=== PATIENT | male | born 1955 | race Caucasian/White ===

== ENCOUNTER 2016-12-05 13:40 | Observation (INO) | payer OTHER ==
[~2016-12-05] VITALS: Ht 167.6 cm; Wt 61.0 kg
[2016-12-05] MEDS ORDERED: SOD CHLORIDE 0.9% 1,000 ML IV STA (21:38)
--- NOTE | 2016-12-05 21:43 | ERA ---
ER Documentation Chief Complaint Date/Time DATE: 12/05/16 TIME: 21:40 Chief Complaint weight loss polyphagia and polydypsia for about a month. bs 449 HPI Patient is a 61-year-old male who was family reports that he is extremely shy and does not complain very frequently so they are unsure when his symptoms actually started. Reportedly he has had weight loss with polydipsia and polyuria possibly for the last month. One of his family members is a diabetic so she checked his blood sugar was in the 400s today and he does not have a history of diabetes. He does not report any pain anywhere although he does state that he feels dizzy and lightheaded when he stands up. He has not passed out nor has he had any chest pain, shortness of breath, palpitations, headache, fever, congestion, sore throat, otalgia, vomiting, diarrhea, dysuria, hematuria , flank, back pain, abnormal bleeding, bruises, or rashes. Nothing seems to make this better or worse. The remainder of the systems are negative. ROS All systems reviewed and are negative except as per history of present illness. Medications Home Meds No Active Prescriptions or Reported Meds Allergies Allergies: Coded Allergies: No Known Drug Allergies (Verified Allergy, Unknown, 12/05/16) PMhx/Soc Medical and Surgical Hx: pt denies Medical Hx, pt denies Surgical Hx Hx Alcohol Use: Yes (occassional) Hx Substance Use: No Hx Tobacco Use: No Smoking Status: Never smoker FmHx Family History: diabetes Physical Exam Vitals Vital Signs Date Time Temp Pulse Resp B/P Pulse Ox O2 Delivery O2 Flow Rate FiO2 12/05/16 21:57 Nasal Cannula 12/05/16 21:29 70 16 120/77 100 Room Air 12/05/16 13:46 98.8 92 21 120/74 98 Physical Exam Const: [] Well-developed well-nourished male lying on the bed, Head: Atraumatic normocephalic Eyes: Normal Conjunctiva ENT: Normal External Ears, Nose and Mouth. Mucosa appears dry Neck: Full range of motion..~ No meningismus. Resp: Clear to auscultation bilaterally Cardio: Regular rate and rhythm, no murmurs, rubs, gallops Abd: Soft, non tender, non distended. Normal bowel sounds no masses, rebound or guarding Skin: No petechiae or rashes Back: No midline or flank tenderness Ext: No cyanosis, or edema Neur: Awake and alert oriented 3 with a GCS 15, nonfocal, moves all extremities equally Psych: Normal Mood and Affect Result Diagram: 12/05/16215412/05/162154 Results 24 hrs Laboratory Tests Test 12/05/16 13:51 12/05/16 21:45 12/05/16 21:55 Bedside Glucose 449mg/dL 330mg/dL Activated Partial Thromboplast Time 25.4Sec Alanine Aminotransferase (ALT/SGPT) 29IU/L Albumin 3.9g/dl Albumin/Globulin Ratio 1.30 Alkaline Phosphatase 181IU/L Anion Gap 15 Aspartate Amino Transf (AST/SGOT) 41IU/L Basophils # 0.010^3/ul Basophils % 0.3% Blood Morphology Comment Blood Urea Nitrogen 19mg/dl Calcium Level 9.3mg/dl Carbon Dioxide Level 25mmol/L Chloride Level 101mmol/L Creatinine 0.62mg/dl Direct Bilirubin 0.00mg/dl Eosinophils # 0.110^3/ul Eosinophils % 1.4% Globulin 3.00g/dl Glucose Level 348mg/dl Hematocrit 39.5% Hemoglobin 13.5g/dl INR International Normalized Ratio 0.92 Indirect Bilirubin 0.3mg/dl Lymphocytes # 2.210^3/ul Lymphocytes % 29.1% Mean Corpuscular Hemoglobin 31.0pg Mean Corpuscular Hemoglobin Concent 34.2g/dl Mean Corpuscular Volume 90.7fl Mean Platelet Volume 10.9fl Monocytes # 0.510^3/ul Monocytes % 6.4% Neutrophils # 4.710^3/ul Neutrophils % 62.8% Nucleated Red Blood Cells # 0.010^3/ul Nucleated Red Blood Cells % 0.0/100WBC Platelet Count 63997^3/UL Potassium Level 4.1mmol/L Prothrombin Time 12.4Sec Prothrombin Time Ratio 1.0 Red Blood Count 4.3510^6/ul Red Cell Distribution Width 12.8% Sodium Level 137mmol/L Total Bilirubin 0.3mg/dl Total Protein 6.9g/dl Troponin I Pending Urine Bilirubin NEGATIVE Urine Clarity CLEAR Urine Color LT. YELLOW Urine Glucose >=1000% Urine Hemoglobin NEGATIVE Urine Ketones 40 Urine Leukocyte Esterase NEGATIVE Urine Nitrite NEGATIVE Urine Specific [place] 1.010 Urine Total Protein NEGATIVE Urine Urobilinogen 0.2 E.U./dL Urine pH 6.0 White Blood Count 7.510^3/ul Current Medications Medications (Trade) Dose Ordered Sig/Heather Route PRN Reason Start Time Stop Time Status Last Admin Dose Admin Sodium Chloride (NS) 1,000 ml @ 1,000 mls/hr Q1H STAT IV 12/05/16 21:38 12/05/16 22:37 12/05/16 22:03 Insulin Human Regular (Humulin R) 6 unit ONCE ONCE IV 12/05/16 22:00 12/05/16 22:01 DC 12/05/16 22:05 Procedures/MDM Medical decision making: Patient presents with what appears to be new onset diabetes. More than likely is volume depleted. I will go ahead and order IV fluids and check his electrolytes. EKG reveals normal sinus rhythm at 65 bpm with no evidence for acute ischemia arrhythmia or abnormalities noted, no old EKG available for comparison Chest x-ray does not reveal any acute cardiopulmonary process per my read 2030: Consult Dr. Flores the hospitalist to admit for further evaluation and treatment of his new onset diabetes Departure Diagnosis: Primary Impression: Diabetes mellitus, new onset Additional Impressions: Dehydration Dizziness Condition: Good PROMISE CRANE Dec 05, 2016 21:43
[2016-12-05] MEDS ORDERED: INSULIN REGULAR, HUMAN 100 UNIT/1 ML 3ML VIAL IV ONE (22:00)
[2016-12-05 22:14] LABS: BASOPHILS % 0.3 % (0.0-2.0); EOSINOPHILS # 0.1 10^3/ul (0.0-0.5); EOSINOPHILS % 1.4 % (0.0-7.0); HEMATOCRIT 39.5 % (42.0-52.0); HEMOGLOBIN 13.5 g/dl (14.0-18.0); LYMPHOCYTES # 2.2 10^3/ul (0.8-2.9); LYMPHOCYTES % 29.1 % (15.0-51.0); MEAN CORPUSCULAR HGB CONC 34.2 g/dl (32.0-37.0); MEAN CORPUSCULAR VOLUME 90.7 fl (82.0-101.0); MEAN PLATELET VOLUME 10.9 fl (7.4-10.4); MONOCYTE # 0.5 10^3/ul (0.3-0.9); MONOCYTES % 6.4 % (0.0-11.0); NEUTROPHIL # 4.7 10^3/ul (1.6-7.5); NEUTROPHILS % 62.8 % (39.0-77.0); PLATELET COUNT 208 10^3/UL (140-440); RED BLOOD COUNT 4.35 10^6/ul (4.70-6.10); RED CELL DISTRIBUTION WIDTH 12.8 % (11.5-14.5); UNCORRECTED WBC 7.5 10^3/ul (4.8-10.8); WHITE BLOOD COUNT 7.5 10^3/ul (4.8-10.8)
[2016-12-05 22:16] LABS: ADD UMIC NO; URINE BILIRUBIN (Dip) NEGATIVE (NEGATIVE); URINE BLOOD (Dip) NEGATIVE (NEGATIVE); URINE COLOR LT. YELLOW (YELLOW); URINE GLUCOSE (Dip) >=1000 % (NEGATIVE); URINE KETONES (Dip) 40 (NEGATIVE); URINE LEUKOCYTE ESTERASE (Dip) NEGATIVE (NEGATIVE); URINE NITRITE (Dip) NEGATIVE (NEGATIVE); URINE TOTAL PROTEIN (Dip) NEGATIVE (NEGATIVE); URINE UROBILINOGEN (Dip) 0.2 E.U./dL (0.1-1.0)
[2016-12-05 22:17] LABS: CONDITION 1
--- NOTE | 2016-12-05 22:19 | RADRPT ---
PROCEDURE: XR Chest. CLINICAL INDICATION: Chest pain TECHNIQUE: Single AP portable chest COMPARISON: None. FINDINGS: The cardiomediastinal silhouette is within normal limits of size ..The lungs are clear without pleur al effusion or focal consolidation. No pneumothorax. The osseous structures and soft tissues are unr emarkable. IMPRESSION: 1. No evidence for active cardiopulmonary disease. RPTAT:AAJJ Sher Granados Physician Date Time Electronically viewed and signed by Sher Granados Physician on 12/05/2016 22:19 SHREMAN/
[2016-12-05 22:21] LABS: ALBUMIN 3.9 g/dl (3.3-4.9)
[2016-12-05 22:22] LABS: CHLORIDE 101 mmol/L (97-110); INR 0.92; POTASSIUM 4.1 mmol/L (3.5-5.1); PROTIME 12.4 Sec (12.2-14.2); SODIUM 137 mmol/L (135-144)
[2016-12-05 22:23] LABS: PARTIAL THROMBOPLASTIN TIME 25.4 Sec (25.0-35.0)
[2016-12-05 22:24] LABS: ANION GAP 15 (8-16); BILIRUBIN,INDIRECT 0.3 mg/dl (0-1.1); BILIRUBIN,TOTAL 0.3 mg/dl (0.2-1.3); CARBON DIOXIDE 25 mmol/L (21-31); CREATININE 0.62 mg/dl (0.61-1.24)
[2016-12-05 22:25] LABS: ALANINE AMINOTRANSFERASE 29 IU/L (13-69); ALKALINE PHOSPHATASE 181 IU/L (42-121); ASPARTATE AMINO TRANSFERASE 41 IU/L (15-46); BLOOD UREA NITROGEN 19 mg/dl (7-20); CALCIUM 9.3 mg/dl (8.4-10.2); GLUCOSE 348 mg/dl (70-220); TOTAL PROTEIN 6.9 g/dl (6.1-8.1)
[2016-12-05 22:53] LABS: TROPONIN-I < 0.012 ng/ml (0.00-0.12)
[2016-12-05] MEDS ORDERED: ONDANSETRON 4 MG INJ IV PRN (23:00)
[2016-12-05] MEDS ORDERED: ACETAMINOPHEN 325 MG TAB PO PRN (23:00)
[2016-12-05 23:37] VITALS: BP 97/67; PULSE 61; RESP 16
[2016-12-06 00:13] VITALS: BP_DIAS 76
[2016-12-06] MEDS ORDERED: GLUCOSE GEL 15 GRAM TUBE PO PRN ×2 (00:30)
[2016-12-06] MEDS ORDERED: GLUCAGON 1 MG INJ IM PRN (00:30)
[2016-12-06] MEDS ORDERED: DEXTROSE 50% 50 ML SYRINGE IV PRN ×2 (00:30)
[2016-12-06] MEDS ORDERED: GLUCOSE GEL 15 GRAM TUBE BUCCAL PRN (00:30)
[2016-12-06 00:34] VITALS: Ht 167.6 cm; Wt 61.0 kg
[2016-12-06] MEDS: ACCUCHECK XX SCH (01:33)
--- NOTE | 2016-12-06 03:29 | HP ---
Date/Time of Note Date/Time of Note DATE: 12/06/16 TIME: 03:17 Assessment/Plan VTE Prophylaxis VTE Prophylaxis Intervention: SCD's Lines/Catheters IV [facility]ter Type (from [facility]): Saline Lock Urinary Cath still in place: No Assessment/Plan Assessment/Plan PROBLEMS: 1. 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 Alcohol abuse? 4. Cardiac Murmur PLAN: Carb controlled diet / SSI / diabetic education / Endocrinology consult Iron profile / Glycohgb / TSH / lipid profile Start low dose Lantus with oral Metformin, Endo to modify as indicated 2D echo in the setting of Murmur and ?alcoholism Thiamine /MVI / Folic acid supplementation / PRN ativan Alcohol cessation counselling done and will continue to be reinforced throughout hospitalization. SW to provide resources for help with cessation and patient to be assisted in obtaining PCP / Also needs screening colonoscopy which should be done outpt. Supportive care PROPHYLAXIS: SCDs / pepcid HPI/ROS Admit Date/Time Admit Date/Time Dec 05, 2016 at 22:31 Hx of Present Illness PRESENTING COMPLAINT: fatigue HISTORY OF PRESENTING COMPLAINT: This is a 61-year-old male presents with family for weight loss with polydipsia and polyuria possibly for the last month .Patient has no hx of DM but was found to have blood sugars in the 400s by family. He has no hx of blood in stool or black stool, but has had dizziness and some fatigue. He has not been started on any new meds and also denies CP, SOB , diarrhea, dysuria or hematuria. He denies focal weakness, headache or passing out. Patient has not been to see a doctor in years and drinks alcohol almost daily ROS 12 point review if systems was done and pertinent findings are as noted. PMH/Family/Social Past Medical History Medical History: no pertinent history Past Surgical History Past Surgical Hx: no surgical history Family History Significant Family History: diabetes Social History Alcohol Use: heavy Smoking Status: Former smoker Drug Use: none Exam/Review of Systems Vital Signs Vitals VS - Last 72 Hours, by Label Date Time Temp Pulse Resp B/P Pulse Ox O2 Delivery O2 Flow Rate FiO2 12/06/16 00:13 98.0 72 18 118/76 96 12/05/16 23:37 61 16 97/67 99 Room Air 12/05/16 21:57 Nasal Cannula 12/05/16 21:29 70 16 120/77 100 Room Air 12/05/16 13:46 98.8 92 21 120/74 98 Vital Signs Date Time Temp Pulse Resp B/P Pulse Ox O2 Delivery O2 Flow Rate FiO2 12/06/16 00:13 98.0 72 18 118/76 96 12/05/16 23:37 Room Air Exam Constitutional: alert, oriented Psych: nl mood/affect Head: atraumatic, normocephalic Eyes: PERRL Neck: non-tender, supple, No jvd Respiratory: clear to auscultation Cardiovascular: murmurs/extra sounds, nl pulses, regular rate and rhythm Gastrointestinal: bowel sounds, non-tender, soft Musculoskeletal: nl extremities to inspection Extremities: No edema 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: nl mental status, nl speech, No focal weakness Skin: No rash or lesions Labs Result Diagram: 12/05/16215412/05/162154 Medications Medications Current Medications Diagnostic Test (Pha) (Accucheck) 1 ea 02 XX ; Start 12/06/16 at 02:00 Miscellaneous Information 1 ea NOTE XX ; Start 12/06/16 at 00:30 Glucose (Glutose) 15 gm Q15M PRN PO DECREASED GLUCOSE; Start 12/06/16 at 00:30 Glucose (Glutose) 22.5 gm Q15M PRN PO DECREASED GLUCOSE; Start 12/06/16 at 00:30 Dextrose (D50w Syringe) 25 ml Q15M PRN IV DECREASED GLUCOSE; Start 12/06/16 at 00:30 Dextrose (D50w Syringe) 50 ml Q15M PRN IV DECREASED GLUCOSE; Start 12/06/16 at 00:30 Glucagon (Glucagen) 1 mg Q15M PRN IM DECREASED GLUCOSE; Start 12/06/16 at 00:30 Glucose (Glutose) 15 gm Q15M PRN BUCCAL DECREASED GLUCOSE; Start 12/06/16 at 00: 30 Procedures Procedures Laboratory Tests Test 12/05/16 13:51 12/05/16 21:45 12/05/16 21:55 12/06/16 00:12 Bedside Glucose 449mg/dL 330mg/dL 140mg/dL Activated Partial Thromboplast Time 25.4Sec Alanine Aminotransferase (ALT/SGPT) 29IU/L Albumin 3.9g/dl Albumin/Globulin Ratio 1.30 Alkaline Phosphatase 181IU/L Anion Gap 15 Aspartate Amino Transf (AST/SGOT) 41IU/L Basophils # 0.010^3/ul Basophils % 0.3% Blood Morphology Comment Blood Urea Nitrogen 19mg/dl Calcium Level 9.3mg/dl Carbon Dioxide Level 25mmol/L Chloride Level 101mmol/L Creatinine 0.62mg/dl Direct Bilirubin 0.00mg/dl Eosinophils # 0.110^3/ul Eosinophils % 1.4% Globulin 3.00g/dl Glucose Level 348mg/dl Hematocrit 39.5% Hemoglobin 13.5g/dl INR International Normalized Ratio 0.92 Indirect Bilirubin 0.3mg/dl Lymphocytes # 2.210^3/ul Lymphocytes % 29.1% Mean Corpuscular Hemoglobin 31.0pg Mean Corpuscular Hemoglobin Concent 34.2g/dl Mean Corpuscular Volume 90.7fl Mean Platelet Volume 10.9fl Monocytes # 0.510^3/ul Monocytes % 6.4% Neutrophils # 4.710^3/ul Neutrophils % 62.8% Nucleated Red Blood Cells # 0.010^3/ul Nucleated Red Blood Cells % 0.0/100WBC Platelet Count 68621^3/UL Potassium Level 4.1mmol/L Prothrombin Time 12.4Sec Prothrombin Time Ratio 1.0 Red Blood Count 4.3510^6/ul Red Cell Distribution Width 12.8% Sodium Level 137mmol/L Total Bilirubin 0.3mg/dl Total Protein 6.9g/dl Troponin I < 0.012ng/ml Urine Bilirubin NEGATIVE Urine Clarity CLEAR Urine Color LT. YELLOW Urine Glucose >=1000% Urine Hemoglobin NEGATIVE Urine Ketones 40 Urine Leukocyte Esterase NEGATIVE Urine Nitrite NEGATIVE Urine Specific [place] 1.010 Urine Total Protein NEGATIVE Urine Urobilinogen 0.2 E.U./dL Urine pH 6.0 White Blood Count 7.510^3/ul PROCEDURE: XR Chest. CLINICAL INDICATION: Chest pain TECHNIQUE: Single AP portable chest COMPARISON: None. FINDINGS: The cardiomediastinal silhouette is within normal limits of size ..The lungs are clear without pleural effusion or focal consolidation. No pneumothorax. The osseous structures and soft tissues are unremarkable. IMPRESSION: 1. No evidence for active cardiopulmonary disease. RPTAT:AAJJ Sher Granados, Physician Date Time Electronically viewed and signed by Sher Granados Physician on 12/05/2016 22:19 I reviewed EKG Rate: Within normal limits Rhythm: sinus Note: No ST elevation or depressions noted concerning for acute ischemic event. GETACHEW SANTA Dec 06, 2016 03:28
[2016-12-06] MEDS ORDERED: LORAZEPAM 2 MG INJ IV PRN (03:30)
[2016-12-06 03:40] LABS: CREATINE KINASE 413 IU/L (23-200)
[2016-12-06 04:02] LABS: CK-MB 3.84 ng/ml (0.0-2.4); TROPONIN-I < 0.012 ng/ml (0.00-0.12)
[2016-12-06 05:49] LABS: BASOPHILS % 0.4 % (0.0-2.0); EOSINOPHILS # 0.1 10^3/ul (0.0-0.5); EOSINOPHILS % 1.4 % (0.0-7.0); HEMATOCRIT 37.4 % (42.0-52.0); LYMPHOCYTES # 1.8 10^3/ul (0.8-2.9); LYMPHOCYTES % 27.5 % (15.0-51.0); MEAN CORPUSCULAR HEMOGLOBIN 31.3 pg (29.0-33.0); MEAN CORPUSCULAR HGB CONC 34.7 g/dl (32.0-37.0); MEAN CORPUSCULAR VOLUME 90.2 fl (82.0-101.0); MEAN PLATELET VOLUME 10.4 fl (7.4-10.4); MONOCYTE # 0.4 10^3/ul (0.3-0.9); MONOCYTES % 6.4 % (0.0-11.0); NEUTROPHIL # 4.3 10^3/ul (1.6-7.5); NEUTROPHILS % 64.3 % (39.0-77.0); PLATELET COUNT 183 10^3/UL (140-440); RED BLOOD COUNT 4.14 10^6/ul (4.70-6.10); RED CELL DISTRIBUTION WIDTH 12.6 % (11.5-14.5); UNCORRECTED WBC 6.7 10^3/ul (4.8-10.8); WHITE BLOOD COUNT 6.7 10^3/ul (4.8-10.8)
[2016-12-06 06:18] LABS: IRON 129 ug/dl (35-150)
[2016-12-06 06:22] LABS: CHOL/HDL RATIO 5.3 RATIO
[2016-12-06 06:28] LABS: TOTAL IRON BINDING CAPACITY 194 ug/dl (241-421)
[2016-12-06 06:50] LABS: THYROID STIMULATING HORMONE 1.73 MIU/L (0.465-4.680)
[2016-12-06 06:54] LABS: CONDITION 1
[2016-12-06] MEDS: MULTIVITAMINS THERAPEUTIC TAB PO SCH (08:09)
[2016-12-06] MEDS: THIAMINE 100 MG TAB PO SCH (08:09)
[2016-12-06] MEDS: FOLIC ACID 1 MG TAB PO SCH (08:09)
[2016-12-06] MEDS ORDERED: INSULIN ASPART [NOVOLOG] 3 ML PEN SC SCH (08:15)
[2016-12-06] MEDS: INSULIN ASPART [NOVOLOG] 3 ML PEN SC SCH ×5 (12:16→20:57)
[2016-12-06 12:17] LABS: CREATINE KINASE 289 IU/L (23-200)
[2016-12-06 12:28] LABS: CK-MB 2.83 ng/ml (0.0-2.4)
[2016-12-06 12:31] LABS: TROPONIN-I < 0.012 ng/ml (0.00-0.12)
--- NOTE | 2016-12-06 14:27 | PN ---
Date/Time of Note Date/Time of Note DATE: 12/06/16 TIME: 14:21 Assessment/Plan VTE Prophylaxis VTE Prophylaxis Intervention: SCD's Lines/Catheters IV Catheter Type (from Nrsg): Saline Lock Urinary Cath still in place: No Assessment/Plan Assessment/Plan 1. Newly diagnosed DM2, started on lantus, premeal novolog and ISS, DM education . Subjective 24 Hr Interval Summary Free Text/Dictation no fever or chills weak Exam/Review of Systems Vital Signs Vitals Vital Signs Date Time Temp Pulse Resp B/P Pulse Ox O2 Delivery O2 Flow Rate FiO2 12/06/16 00:13 98.0 72 18 118/76 96 12/05/16 23:37 Room Air Intake and Output 12/05/16 12/05/16 12/06/16 15:00 23:00 07:00 Intake Total 240 ml Balance 240 ml Exam Constitutional: alert, oriented, well developed Psych: nl mood/affect, no complaints Head: atraumatic, normocephalic Eyes: EOMI, nl conjunctiva, nl lids ENMT: nl external ears & nose, nl lips & teeth, nl nasal mucosa & septum Neck: non-tender, supple Respiratory: clear to auscultation, normal air movement, No congested cough, No crackles/rales, No diminished breath sounds, No intercostal retraction, No labored breathing, No other, No respirations, No tactile fremitus, No wheezing Cardiovascular: nl pulses, regular rate and rhythm, No S3, No S4, No bruits, No diastolic murmur, No edema, No gallop, No irregular rhythm, No jugular venous distention (JVD), No murmurs/extra sounds, No other, No rub, No systolic murmur Gastrointestinal: nl liver, spleen, non-tender, soft, No ascites, No bowel sounds, No distended, No firm, No hepatomegaly, No mass , No other, No rebound or guarding, No splenomegaly, No surgical scars, No tender Musculoskeletal: nl extremities to inspection Extremities: normal pulses, No calf tenderness, No clubbing, No cyanosis, No edema, No other, No palpable cord, No pitting pedal edema, No tenderness 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: 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, nl mental status, nl speech, nl strength Skin: nl turgor, rash or lesions Lymph: nl lymph nodes Results Result Diagram: 12/06/16 0515 12/05/16 2155 Results 24 hrs Laboratory Tests Test 12/05/16 21:45 12/05/16 21:55 12/06/16 00:12 12/06/16 03:25 Bedside Glucose 330 H 140 Activated Partial Thromboplast Time 25.4 Alanine Aminotransferase (ALT/SGPT) 29 Albumin 3.9 Albumin/Globulin Ratio 1.30 Alkaline Phosphatase 181 H Anion Gap 15 Aspartate Amino Transf (AST/SGOT) 41 Basophils # 0.0 Basophils % 0.3 Blood Morphology Comment Blood Urea Nitrogen 19 Calcium Level 9.3 Carbon Dioxide Level 25 Chloride Level 101 Creatinine 0.62 Direct Bilirubin 0.00 Eosinophils # 0.1 Eosinophils % 1.4 Globulin 3.00 Glucose Level 348 H Hematocrit 39.5 L Hemoglobin 13.5 L INR International Normalized Ratio 0.92 Indirect Bilirubin 0.3 Lymphocytes # 2.2 Lymphocytes % 29.1 Mean Corpuscular Hemoglobin 31.0 Mean Corpuscular Hemoglobin Concent 34.2 Mean Corpuscular Volume 90.7 Mean Platelet Volume 10.9 H Monocytes # 0.5 Monocytes % 6.4 Neutrophils # 4.7 Neutrophils % 62.8 Nucleated Red Blood Cells # 0.0 Nucleated Red Blood Cells % 0.0 Platelet Count 208 Potassium Level 4.1 Prothrombin Time 12.4 Prothrombin Time Ratio 1.0 Red Blood Count 4.35 L Red Cell Distribution Width 12.8 Sodium Level 137 Total Bilirubin 0.3 Total Protein 6.9 Troponin I < 0.012 < 0.012 Urine Bilirubin NEGATIVE Urine Clarity CLEAR Urine Color LT. YELLOW Urine Glucose >=1000 Urine Hemoglobin NEGATIVE Urine Ketones 40 Urine Leukocyte Esterase NEGATIVE Urine Nitrite NEGATIVE Urine Specific [place] 1.010 Urine Total Protein NEGATIVE Urine Urobilinogen 0.2 E.U./dL Urine pH 6.0 White Blood Count 7.5 Creatine Kinase 413 H Creatine Kinase Index 0.9 Creatinine Kinase MB (Mass) 3.84 H Test 12/06/16 05:15 12/06/16 07:45 12/06/16 11:35 12/06/16 11:59 Basophils # 0.0 Basophils % 0.4 Blood Morphology Comment Cholesterol Level 244 H Cholesterol/HDL Ratio 5.3 Eosinophils # 0.1 Eosinophils % 1.4 HDL Cholesterol 46 Hematocrit 37.4 L Hemoglobin 13.0 L Hemoglobin A1c Iron Level 129 LDL Cholesterol, Calculated 175 Lymphocytes # 1.8 Lymphocytes % 27.5 Mean Corpuscular Hemoglobin 31.3 Mean Corpuscular Hemoglobin Concent 34.7 Mean Corpuscular Volume 90.2 Mean Platelet Volume 10.4 Monocytes # 0.4 Monocytes % 6.4 Neutrophils # 4.3 Neutrophils % 64.3 Nucleated Red Blood Cells # 0.0 Nucleated Red Blood Cells % 0.0 Percent Iron Saturation 66 H Platelet Count 183 Red Blood Count 4.14 L Red Cell Distribution Width 12.6 Thyroid Stimulating Hormone (TSH) 1.730 Total Iron Binding Capacity 194 L Triglycerides Level 116 White Blood Count 6.7 Bedside Glucose 263 H 227 H Creatine Kinase 289 H Creatine Kinase Index 1.0 Creatinine Kinase MB (Mass) 2.83 H Troponin I < 0.012 Medications Medications Current Medications Diagnostic Test (Pha) (Accucheck) 1 ea 02 XX ; Start 12/06/16 at 02:00 Miscellaneous Information 1 ea NOTE XX ; Start 12/06/16 at 00:30 Glucose (Glutose) 15 gm Q15M PRN PO DECREASED GLUCOSE; Start 12/06/16 at 00:30 Glucose (Glutose) 22.5 gm Q15M PRN PO DECREASED GLUCOSE; Start 12/06/16 at 00:30 Dextrose (D50w Syringe) 25 ml Q15M PRN IV DECREASED GLUCOSE; Start 12/06/16 at 00:30 Dextrose (D50w Syringe) 50 ml Q15M PRN IV DECREASED GLUCOSE; Start 12/06/16 at 00:30 Glucagon (Glucagen) 1 mg Q15M PRN IM DECREASED GLUCOSE; Start 12/06/16 at 00:30 Glucose (Glutose) 15 gm Q15M PRN BUCCAL DECREASED GLUCOSE; Start 12/06/16 at 00: 30 Multivitamins Therapeutic (Theragran) 1 tab DAILY PO Last administered on 08:09; Admin Dose 1 TAB; Start 12/06/16 at 09:00 Folic Acid (Folic Acid) 1 mg DAILY PO Last administered on 12/06/16 08:09; Admin Dose 1 MG; Start 12/06/16 at 09:00 Thiamine HCl (Vitamin B1) 100 mg DAILY PO Last administered on 12/06/16 08:09; Admin Dose 100 MG; Start 12/06/16 at 09:00 Lorazepam (Ativan) 2 mg Q8H PRN IV withdrawal; Start 12/06/16 at 03:30 Insulin Glargine (Lantus) 15 unit DAILY@20 SC ; Start 12/06/16 at 20:00 Diagnostic Test (Pha) (Accucheck) 1 XX ; Start 12/07/16 at 02:00 RENE KAMINSKI MD Dec 06, 2016 14:27
--- NOTE | 2016-12-06 18:32 | CONS ---
Date/Time of Note Date/Time of Note DATE: 12/06/16 TIME: 18:24 Assessment/Plan Assessment/Plan Problems: (1) Diabetes mellitus, new onset Status: Acute Comment: Uncertain if this represents Type 1 or Type 2 although family history is Type 2, presentation of symptoms is more like type 1. That being said, sheer risk factors make this more likely to be type 2. For now will treat with insulin at weight based doses which equals lantus 15 qhs and Novolog 7 qac. Check c-peptide and antibody panel for T1DM. Pt. requires education. Suspect pt. will be ready for d/c home prior to availability of labs regarding diabetes type. When ready for d/c would d/c home on metformin and glimepiride. If labs suggest Type 1 after d/c, pt. will need to be changed to insulin. (2) Uncomplicated alcohol dependence Status: Chronic Comment: Pt. advised to stop drinking. Consultation Date/Type/Reason Admit Date/Time Dec 05, 2016 at 22:31 Date of Consultation: Dec 06, 2016 Type of Consultation: Endocrinology Reason for Consultation New onset DM Referring Provider: GETACHEW SANTA Hx of Present Illness 61 y/o H M w/o sig. PMH in [facility] until 2 months ago when he developed classic triad of polyuria, polydipsia, and weight loss. Nocturia was 3-4x/night. Notes lost 6-8 kg. Yesterday brother checked FS b/c brother a diabetic and was > 400 mg/dL. Came to ER. Constitutional: improved, no complaints Eyes: no complaints ENT: no complaints Respiratory: no complaints Cardiovascular: no complaints Gastrointestinal: no complaints Genitourinary: no complaints Musculoskeletal: no complaints Neurologic: no complaints Psychological: nl mood/affect, no complaints Past Medical History Medical History: no pertinent history Past Surgical History Past Surgical Hx: no surgical history Family History Significant Family History: diabetes (brother), hypertension (brother) Social History b. 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 Alcohol Use: heavy (at least 1 40 oz./d) Smoking Status: Former smoker (2-3 cigs/d x 10 years and quit 10 years ago) Drug Use: none Exam/Review of Systems Vital Signs Vitals VS - Last 72 Hours, by Label Date Time Temp Pulse Resp B/P Pulse Ox O2 Delivery O2 Flow Rate FiO2 12/06/16 00:13 98.0 72 18 118/76 96 12/05/16 23:37 61 16 97/67 99 Room Air 12/05/16 21:57 Nasal Cannula 12/05/16 21:29 70 16 120/77 100 Room Air 12/05/16 13:46 98.8 92 21 120/74 98 Vital Signs Date Time Temp Pulse Resp B/P Pulse Ox O2 Delivery O2 Flow Rate FiO2 12/06/16 00:13 98.0 72 18 118/76 96 12/05/16 23:37 Room Air Intake and Output 12/05/16 12/05/16 12/06/16 15:00 23:00 07:00 Intake Total 240 ml Balance 240 ml Exam Constitutional: alert, oriented, well developed Psych: nl mood/affect, no complaints Head: atraumatic, normocephalic Eyes: EOMI, PERRL, nl conjunctiva, nl lids, nl sclera ENMT: mucosa pink and moist, nl external ears & nose Neck: non-tender, supple, No bruits, No masses, No thyromegaly Respiratory: clear to auscultation, normal air movement Cardiovascular: nl pulses, regular rate and rhythm, No edema, No murmurs/extra sounds, No rub Gastrointestinal: bowel sounds, nl liver, spleen, non-tender, soft, No mass, No rebound or guarding Musculoskeletal: nl extremities to inspection Extremities: normal pulses, No clubbing, No cyanosis, No edema 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, nl mental status, nl speech, nl strength Additional Comments Bedside Glucose - 72 Hours Test 12/05/16 13:51 12/05/16 21:45 12/06/16 00:12 12/06/16 07:45 Bedside Glucose 449mg/dL (70-220) *H 330mg/dL (70-220) H 140mg/dL (70-220) 263mg/dL (70-220) H Test 12/06/16 11:59 12/06/16 17:11 Bedside Glucose 227mg/dL (70-220) H 169mg/dL (70-220) Results Result Diagram: 12/06/16 0515 12/05/16 9196 Results 24 hrs Laboratory Tests Test 12/05/16 21:45 12/05/16 21:55 12/06/16 00:12 12/06/16 03:25 Bedside Glucose 330 H 140 Activated Partial Thromboplast Time 25.4 Alanine Aminotransferase (ALT/SGPT) 29 Albumin 3.9 Albumin/Globulin Ratio 1.30 Alkaline Phosphatase 181 H Anion Gap 15 Aspartate Amino Transf (AST/SGOT) 41 Basophils # 0.0 Basophils % 0.3 Blood Morphology Comment Blood Urea Nitrogen 19 Calcium Level 9.3 Carbon Dioxide Level 25 Chloride Level 101 Creatinine 0.62 Direct Bilirubin 0.00 Eosinophils # 0.1 Eosinophils % 1.4 Globulin 3.00 Glucose Level 348 H Hematocrit 39.5 L Hemoglobin 13.5 L INR International Normalized Ratio 0.92 Indirect Bilirubin 0.3 Lymphocytes # 2.2 Lymphocytes % 29.1 Mean Corpuscular Hemoglobin 31.0 Mean Corpuscular Hemoglobin Concent 34.2 Mean Corpuscular Volume 90.7 Mean Platelet Volume 10.9 H Monocytes # 0.5 Monocytes % 6.4 Neutrophils # 4.7 Neutrophils % 62.8 Nucleated Red Blood Cells # 0.0 Nucleated Red Blood Cells % 0.0 Platelet Count 208 Potassium Level 4.1 Prothrombin Time 12.4 Prothrombin Time Ratio 1.0 Red Blood Count 4.35 L Red Cell Distribution Width 12.8 Sodium Level 137 Total Bilirubin 0.3 Total Protein 6.9 Troponin I < 0.012 < 0.012 Urine Bilirubin NEGATIVE Urine Clarity CLEAR Urine Color LT. YELLOW Urine Glucose >=1000 Urine Hemoglobin NEGATIVE Urine Ketones 40 Urine Leukocyte Esterase NEGATIVE Urine Nitrite NEGATIVE Urine Specific [place] 1.010 Urine Total Protein NEGATIVE Urine Urobilinogen 0.2 E.U./dL Urine pH 6.0 White Blood Count 7.5 Creatine Kinase 413 H Creatine Kinase Index 0.9 Creatinine Kinase MB (Mass) 3.84 H Test 12/06/16 05:15 12/06/16 07:45 12/06/16 11:35 12/06/16 11:59 Basophils # 0.0 Basophils % 0.4 Blood Morphology Comment Cholesterol Level 244 H Cholesterol/HDL Ratio 5.3 Eosinophils # 0.1 Eosinophils % 1.4 HDL Cholesterol 46 Hematocrit 37.4 L Hemoglobin 13.0 L Hemoglobin A1c Iron Level 129 LDL Cholesterol, Calculated 175 Lymphocytes # 1.8 Lymphocytes % 27.5 Mean Corpuscular Hemoglobin 31.3 Mean Corpuscular Hemoglobin Concent 34.7 Mean Corpuscular Volume 90.2 Mean Platelet Volume 10.4 Monocytes # 0.4 Monocytes % 6.4 Neutrophils # 4.3 Neutrophils % 64.3 Nucleated Red Blood Cells # 0.0 Nucleated Red Blood Cells % 0.0 Percent Iron Saturation 66 H Platelet Count 183 Red Blood Count 4.14 L Red Cell Distribution Width 12.6 Thyroid Stimulating Hormone (TSH) 1.730 Total Iron Binding Capacity 194 L Triglycerides Level 116 White Blood Count 6.7 Bedside Glucose 263 H 227 H Creatine Kinase 289 H Creatine Kinase Index 1.0 Creatinine Kinase MB (Mass) 2.83 H Troponin I < 0.012 Test 12/06/16 17:11 Bedside Glucose 169 Medications Medications Current Medications Diagnostic Test (Pha) (Accucheck) 1 ea 02 XX ; Start 12/06/16 at 02:00 Miscellaneous Information 1 ea NOTE XX ; Start 12/06/16 at 00:30 Glucose (Glutose) 15 gm Q15M PRN PO DECREASED GLUCOSE; Start 12/06/16 at 00:30 Glucose (Glutose) 22.5 gm Q15M PRN PO DECREASED GLUCOSE; Start 12/06/16 at 00:30 Dextrose (D50w Syringe) 25 ml Q15M PRN IV DECREASED GLUCOSE; Start 12/06/16 at 00:30 Dextrose (D50w Syringe) 50 ml Q15M PRN IV DECREASED GLUCOSE; Start 12/06/16 at 00:30 Glucagon (Glucagen) 1 mg Q15M PRN IM DECREASED GLUCOSE; Start 12/06/16 at 00:30 Glucose (Glutose) 15 gm Q15M PRN BUCCAL DECREASED GLUCOSE; Start 12/06/16 at 00: 30 Multivitamins Therapeutic (Theragran) 1 tab DAILY PO Last administered on 08:09; Admin Dose 1 TAB; Start 12/06/16 at 09:00 Folic Acid (Folic Acid) 1 mg DAILY PO Last administered on 12/06/16 08:09; Admin Dose 1 MG; Start 12/06/16 at 09:00 Thiamine HCl (Vitamin B1) 100 mg DAILY PO Last administered on 12/06/16 08:09; Admin Dose 100 MG; Start 12/06/16 at 09:00 Lorazepam (Ativan) 2 mg Q8H PRN IV withdrawal; Start 12/06/16 at 03:30 Insulin Glargine (Lantus) 15 unit DAILY@20 SC ; Start 12/06/16 at 20:00 Diagnostic Test (Pha) (Accucheck) 1 XX ; Start 12/07/16 at 02:00 JESSE MALDONADO MD Dec 06, 2016 18:32
[2016-12-06 19:22] VITALS: BP_DIAS 76
[2016-12-06] MEDS ORDERED: INSULIN GLARGINE [LANtus] 3 ML PEN SC SCH (20:00)
--- NOTE | 2016-12-06 22:49 | RADRPT ---
Echocardiogram Report Patient Name: IRLANDA BRANCH Gender: Male Date: 1955 Study Date: 06-Dec-2016 Life Teacher: Soraida Allison [facility] Location: [id number] Ref. Physician: GETACHEW SANTA Quality: Good Procedures: Transthoracic echocardiogram with complete 2D, M-Mode, and doppler examination. Indications: Murmur. 2D/M Mode Doppler Measurement Value Normal Ranges Measurement Value Normal Ranges LVIDd 2D 4.6 3.5 - 5.6 cm AV Peak Dennis 1.3 m/sec LVIDs 2D 2.6 2.1 - 4.1 cm AV Peak PG 6.5 mmHg LVPWd 2D 0.9 0.6 - 1.1 cm LVOT Peak Dennis 1.0 m/sec IVSd 2D 0.7 0.6 - 1.1 cm LVOT Peak PG 4.2 mmHg AoR Diam 2D 2.6 2.0 - 3.7 cm MV E Peak Dennis 0.5 m/sec EDV 2D 96.1 cm3 MV A Peak Dennis 0.5 m/sec ESV 2D 18.4 cm3 MV E/A 1.0 LA Dimen 2D 2.9 2.3 - 4.0 cm MV Decel Time 205 msec MV Decel [place] 3 MV E/A 1.0 TR Peak Dennis 2.4 m/sec TR Peak PG 22.6 mmHg RVSP 26.0 mmHg Findings Left Ventricle: Normal left ventricular systolic function. Normal left ventricular cavity size. Normal left ventricular wall thickness. Ejection fraction is visually estimated at 65 %. Right Ventricle: Normal right ventricular size. Normal right ventricular systolic function. Left Atrium: The left atrium is normal in size. Right Atrium: The right atrium is normal in size. Mitral Valve: Normal appearance and function of the mitral valve with trace physiologic regurgitation. Aortic Valve: No significant aortic stenosis or insufficiency. Aortic cusps appear mildly calcified. Tricuspid Valve: Normal appearance and function of the tricuspid valve with trace physiologic regurgitation. Estimated peak PA systolic pressure 26 mmHg. Pulmonic Valve: Normal pulmonic valve appearance. Pericardium: Normal pericardium with no significant pericardial effusion. Aorta: Normal aortic root. IVC: Normal size and normal respiratory collapse consistent with normal right atrial pressure. Conclusions Normal left ventricular systolic function. Normal left ventricular cavity size. Normal left ventricular wall thickness. Ejection fraction is visually estimated at 65 %. Normal right ventricular size. Normal right ventricular systolic function. The left atrium is normal in size. The right atrium is normal in size. No significant valvular stenosis or regurgitation seen. Normal pericardium with no significant pericardial effusion. Electronically Signed By: Chilo Rosenberg 06-Dec-2016 22:48:22 -0800 Patient Name: IRLANDA BRANCH Study Date: 06-Dec-2016 [id number]
[2016-12-07] MEDS: ACCUCHECK XX SCH (02:00)
[2016-12-07] MEDS ORDERED: ACCUCHECK XX SCH (02:00)
[2016-12-07 08:00] VITALS: BP_DIAS 72
[2016-12-07] MEDS: INSULIN ASPART [NOVOLOG] 3 ML PEN SC SCH ×4 (08:08→12:12)
[2016-12-07 08:18] LABS: BASOPHILS % 0.3 % (0.0-2.0); EOSINOPHILS # 0.1 10^3/ul (0.0-0.5); EOSINOPHILS % 0.7 % (0.0-7.0); HEMATOCRIT 40.5 % (42.0-52.0); HEMOGLOBIN 13.7 g/dl (14.0-18.0); LYMPHOCYTES # 2.2 10^3/ul (0.8-2.9); LYMPHOCYTES % 23.1 % (15.0-51.0); MEAN CORPUSCULAR HEMOGLOBIN 30.7 pg (29.0-33.0); MEAN CORPUSCULAR HGB CONC 33.8 g/dl (32.0-37.0); MEAN CORPUSCULAR VOLUME 90.8 fl (82.0-101.0); MEAN PLATELET VOLUME 10.8 fl (7.4-10.4); MONOCYTE # 0.6 10^3/ul (0.3-0.9); MONOCYTES % 5.8 % (0.0-11.0); NEUTROPHIL # 6.8 10^3/ul (1.6-7.5); NEUTROPHILS % 70.1 % (39.0-77.0); PLATELET COUNT 203 10^3/UL (140-440); RED BLOOD COUNT 4.46 10^6/ul (4.70-6.10); RED CELL DISTRIBUTION WIDTH 12.5 % (11.5-14.5); UNCORRECTED WBC 9.6 10^3/ul (4.8-10.8); WHITE BLOOD COUNT 9.6 10^3/ul (4.8-10.8)
[2016-12-07 08:28] LABS: CONDITION 1
[2016-12-07] MEDS: MULTIVITAMINS THERAPEUTIC TAB PO SCH (09:05)
[2016-12-07] MEDS: FOLIC ACID 1 MG TAB PO SCH (09:05)
[2016-12-07] MEDS: THIAMINE 100 MG TAB PO SCH (09:05)
--- NOTE | 2016-12-07 13:43 | CONS ---
Date/Time of Note Date/Time of Note DATE: 12/07/16 TIME: 13:40 Assessment/Plan Assessment/Plan Problems: (1) Diabetes mellitus, new onset Status: Acute Comment: Glucose levels markedly improved and now normalizing on current insulin doses. Will continue. Pt. likely will be able to be d/c'ed home on oral hypoglycemics for suspected type 2 DM. Consultation Date/Type/Reason Admit Date/Time Dec 05, 2016 at 22:32 Initial Consult Date 12/06/16 Type of Consultation: Endocrinology Reason for Consultation New onset DM Referring Provider: GETACHEW SANTA 24 HR Interval Summary Constitutional: improved, no complaints Detailed Summary Respiratory: no complaints Cardiovascular: no complaints Gastrointestinal: no complaints Genitourinary: no complaints Musculoskeletal: no complaints Neurologic: no complaints Exam/Review of Systems Vital Signs Vitals VS - Last 72 Hours, by Label Date Time Temp Pulse Resp B/P Pulse Ox O2 Delivery O2 Flow Rate FiO2 12/07/16 08:00 97.6 80 18 114/72 97 12/06/16 19:22 98.4 85 121/76 97 12/06/16 00:13 98.0 72 18 118/76 96 12/05/16 23:37 61 16 97/67 99 Room Air 12/05/16 21:57 Nasal Cannula 12/05/16 21:29 70 16 120/77 100 Room Air 12/05/16 13:46 98.8 92 21 120/74 98 Vital Signs Date Time Temp Pulse Resp B/P Pulse Ox O2 Delivery O2 Flow Rate FiO2 12/07/16 08:00 97.6 80 18 114/72 97 12/05/16 23:37 Room Air Intake and Output 12/06/16 12/06/16 12/07/16 15:00 23:00 07:00 Intake Total 1000 ml 120 ml Balance 1000 ml 120 ml Exam Constitutional: alert, oriented, well developed Psych: nl mood/affect, no complaints Respiratory: clear to auscultation, normal air movement Cardiovascular: nl pulses, regular rate and rhythm Gastrointestinal: bowel sounds, nl liver, spleen, non-tender, soft, No mass, No rebound or guarding Musculoskeletal: nl extremities to inspection, nl gait and stance Extremities: normal pulses, No clubbing, No cyanosis, No edema 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, nl mental status, nl speech, nl strength Additional Comments Bedside Glucose - 72 Hours Test 12/05/16 13:51 12/05/16 21:45 12/06/16 00:12 12/06/16 07:45 Bedside Glucose 449mg/dL (70-220) *H 330mg/dL (70-220) H 140mg/dL (70-220) 263mg/dL (70-220) H Test 12/06/16 11:59 12/06/16 17:11 12/06/16 20:52 12/07/16 02:03 Bedside Glucose 227mg/dL (70-220) H 169mg/dL (70-220) 205mg/dL (70-220) 164mg/dL (70-220) Test 12/07/16 07:32 12/07/16 11:54 Bedside Glucose 158mg/dL (70-220) 125mg/dL (70-220) Results Result Diagram: 12/07/16 0549 12/05/165 Results 24 hrs Laboratory Tests Test 12/06/16 17:11 12/06/16 20:52 12/07/16 02:03 12/07/16 05:49 Bedside Glucose 169 205 164 Basophils # 0.0 Basophils % 0.3 Blood Morphology Comment Eosinophils # 0.1 Eosinophils % 0.7 Hematocrit 40.5 L Hemoglobin 13.7 L Lymphocytes # 2.2 Lymphocytes % 23.1 Mean Corpuscular Hemoglobin 30.7 Mean Corpuscular Hemoglobin Concent 33.8 Mean Corpuscular Volume 90.8 Mean Platelet Volume 10.8 H Monocytes # 0.6 Monocytes % 5.8 Neutrophils # 6.8 Neutrophils % 70.1 Nucleated Red Blood Cells # 0.0 Nucleated Red Blood Cells % 0.0 Platelet Count 203 Red Blood Count 4.46 L Red Cell Distribution Width 12.5 White Blood Count 9.6 # Test 12/07/16 07:32 12/07/16 11:54 Bedside Glucose 158 125 Medications Medications Current Medications Diagnostic Test (Pha) (Accucheck) 1 ea 02 XX ; Start 12/06/16 at 02:00 Miscellaneous Information 1 ea NOTE XX ; Start 12/06/16 at 00:30 Glucose (Glutose) 15 gm Q15M PRN PO DECREASED GLUCOSE; Start 12/06/16 at 00:30 Glucose (Glutose) 22.5 gm Q15M PRN PO DECREASED GLUCOSE; Start 12/06/16 at 00:30 Dextrose (D50w Syringe) 25 ml Q15M PRN IV DECREASED GLUCOSE; Start 12/06/16 at 00:30 Dextrose (D50w Syringe) 50 ml Q15M PRN IV DECREASED GLUCOSE; Start 12/06/16 at 00:30 Glucagon (Glucagen) 1 mg Q15M PRN IM DECREASED GLUCOSE; Start 12/06/16 at 00:30 Glucose (Glutose) 15 gm Q15M PRN BUCCAL DECREASED GLUCOSE; Start 12/06/16 at 00: 30 Multivitamins Therapeutic (Theragran) 1 tab DAILY PO Last administered on 09:05; Admin Dose 1 TAB; Start 12/06/16 at 09:00 Folic Acid (Folic Acid) 1 mg DAILY PO Last administered on 12/07/16 09:05; Admin Dose 1 MG; Start 12/06/16 at 09:00 Thiamine HCl (Vitamin B1) 100 mg DAILY PO Last administered on 12/07/16 09:05; Admin Dose 100 MG; Start 12/06/16 at 09:00 Lorazepam (Ativan) 2 mg Q8H PRN IV withdrawal; Start 12/06/16 at 03:30 Insulin Glargine (Lantus) 15 unit DAILY@20 SC Last administered on 12/06/16 21: 02; Admin Dose 15 UNIT; Start 12/06/16 at 20:00 Diagnostic Test (Pha) (Accucheck) 1 ea 02 XX Last administered on 12/07/16 02: 54; Admin Dose 1 EA; Start 12/07/16 at 02:00 JESSE MALDONADO MD Dec 07, 2016 13:43
[2016-12-07] MEDS ORDERED: NOVO3I SC ×2 (15:05)
[2016-12-07] MEDS ORDERED: LANT3I SC (15:05)
--- NOTE | 2016-12-07 15:09 | DS ---
Date/Time of Note Date/Time of Note DATE: 12/07/16 TIME: 15:05 Discharge Summary Admission/Discharge Info Admit Date/Time Dec 05, 2016 at 22:32 Discharge Date/Time Final Diagnosis 1. Newly diagnosed DM2, stable on lantus, premeal novolog and ISS, follow up with PCP . Hx of Present Illness : This is a 61-year-old male presents with family for weight loss with polydipsia and polyuria possibly for the last month .Patient has no hx of DM but was found to have blood sugars in the 400s by family. He has no hx of blood in stool or black stool, but has had dizziness and some fatigue. He has not been started on any new meds and also denies CP, SOB , diarrhea, dysuria or hematuria. He denies focal weakness, headache or passing out. Patient has not been to see a doctor in years and drinks alcohol almost daily Hospital Course This is a 61-year-old male presents with family for weight loss with polydipsia and polyuria possibly for the last month .Patient has no hx of DM but was found to have blood sugars in the 400s by family. On admission, BG 449. Patient is treated with lantus, premeal insulin, and Iinsulin sliding scale. His bloog glucose has been well controlled. Home Meds Active Scripts Insulin Glargine* (Lantus*) 100 Unit/Ml Soln, 15 UNIT SC DAILY@20 for 30 Days Prov:RENE KAMINSKI MD 12/07/16 Insulin Aspart* (Novolog Insulin Pen*) 100 Unit/Ml Soln, 7 UNIT SC WITH MEALS for 30 Days Prov:RENE KAMINSKI MD 12/07/16 Insulin Aspart* (Novolog Insulin Pen*) 100 Unit/Ml Soln, 0 UNIT SC WITH MEALS BEDTIME for 30 Days Prov:RENE KAMINSKI MD 12/07/16 Follow-up Plan PCP in one week Pending Labs Laboratory Tests Test 12/06/16 17:11 12/06/16 20:52 12/07/16 02:03 12/07/16 05:49 Bedside Glucose 169mg/dL (70-220) 205mg/dL (70-220) 164mg/dL (70-220) Basophils # 0.010^3/ul (0.0-0.1) Basophils % 0.3% (0.0-2.0) Blood Morphology Comment Eosinophils # 0.110^3/ul (0.0-0.5) Eosinophils % 0.7% (0.0-7.0) Hematocrit 40.5% (42.0-52.0) Hemoglobin 13.7g/dl (14.0-18.0) Lymphocytes # 2.210^3/ul (0.8-2.9) Lymphocytes % 23.1% (15.0-51.0) Mean Corpuscular Hemoglobin 30.7pg (29.0-33.0) Mean Corpuscular Hemoglobin Concent 33.8g/dl (32.0-37.0) Mean Corpuscular Volume 90.8fl (82.0-101.0) Mean Platelet Volume 10.8fl (7.4-10.4) Monocytes # 0.610^3/ul (0.3-0.9) Monocytes % 5.8% (0.0-11.0) Neutrophils # 6.810^3/ul (1.6-7.5) Neutrophils % 70.1% (39.0-77.0) Nucleated Red Blood Cells # 0.010^3/ul (0.0-0.0) Nucleated Red Blood Cells % 0.0/100WBC (0.0-0.0) Platelet Count 63742^3/UL (140-440) Red Blood Count 4.4610^6/ul (4.70-6.10) Red Cell Distribution Width 12.5% (11.5-14.5) White Blood Count 9.610^3/ul (4.8-10.8) Test 12/07/16 07:32 12/07/16 11:54 Bedside Glucose 158mg/dL (70-220) 125mg/dL (70-220) RENE KAMINSKI MD Dec 07, 2016 15:08
[2016-12-08 12:03] LABS: ISLET CELL ANTIBODY SCREEN NEGATIVE (NEGATIVE)
== END 2016-12-07 16:55 | disposition home or self-care (01) ==
LOC: E/R 13:40 → MS2 22:31 → UNDOADMOB 22:31 → MS2 22:32
PROVIDERS: ADMIT Family Medicine; ATTEND Family Medicine
DX: E11.9 Type 2 diabetes mellitus without complications (principal); Z79.4 Long term (current) use of insulin; Z87.891 Personal history of nicotine dependence; Z83.3 Family history of diabetes mellitus; Z82.49 Family history of ischemic heart disease and other diseases of the circulatory system
CPT/HCPCS: 36415; 71010; 80053; 80061; 81003; 82550; 82553; 82962; 83036; 83540; 84443; 84484; 84681; 85025; 85610; 85730; 86337; 86341; 93005; 93306; 96374; J1815; J7030; Z7500; Z7502; Z7610; G0378